=== PATIENT | female | born 1980 | race Caucasian/White ===

== ENCOUNTER 2018-12-01 19:35 | Emergency (ER) | payer OTHER ==
[~2018-12-01] VITALS: Ht 167.6 cm; Wt 102.0 kg
[2018-12-01 19:39] VITALS: BP 127/68; PULSE 105; RESP 20; Ht 167.6 cm; Wt 102.0 kg
[2018-12-01] MEDS ORDERED: KETOROLAC 30 MG INJ IM STA (22:11)
--- NOTE | 2018-12-01 22:11 | ERD ---
ER Documentation Chief Complaint Chief Complaint missed a step x 1 1/2 hour ago, c/o left foot pain HPI 37-year-old female presents here in the emergency department with complaints of left foot pain, right foot pain. Stated that he started after tripping on a 2 [address] stairs. Stated that she tripped, fell, landed on her left foot. [place]. LMP: 11/16/2018. G4, . Denies headache, head injury, loss of consciousness, dizziness, neck pain, neck stiffness, throat pain, difficulty swallowing, difficulty breathing lying flat, shoulder pain, chest pain, back pain, abdominal pain, nausea, vomiting, constipation, diarrhea, urinary symptoms, or possibility being , loss of bowel and bladder control, trauma, injury, falls, difficulty walking due to pain, numbness or tingling sensation, calf pain, recent travel, recent major surgery in the last 3 weeks, calf pain, recent long travel, recent exposure to any illness, recent antibiotic use in the last 3 months, fever, chills, seizures. Past medical history: Denies. Surgical history: Cholecystectomy. Social: Denies smoking, use of alcoholic beverages, use of illegal drugs. ROS All systems reviewed and are negative except as per history of present illness. Medications Home Meds Active Scripts Hydrocodone/Acetaminophen ([place] 10-325 Tablet) 1 Each Tablet, 1 TAB PO Q6H PRN for PAIN, #20 TAB Prov:PASILABAN,CANDYAR F 12/01/18 Ibuprofen* (Motrin*) 800 Mg Tab, 800 MG PO Q8 PRN for PAIN AND OR ELEVATED TEMP, #30 TAB Prov:PASILABAN,CANDYAR F 12/01/18 Allergies Allergies: Coded Allergies: No Known Drug Allergies (Verified Allergy, Unknown, 12/01/18) PMhx/Soc History of Surgery: Yes (jericho) Hx Alcohol Use: No Hx Substance Use: No Hx Tobacco Use: No Smoking Status: Never smoker Physical Exam Vitals Vital Signs Date Temp Pulse Resp B/P (MAP) Pulse Ox O2 O2 Flow FiO2 Time Delivery Rate 12/01/18 99.5 105 20 127/68 98 19:39 (87) Physical Exam Const: No acute distress Head: Atraumatic. No signs of direct injury to the head. Scalp is intact. Eyes: Normal Conjunctiva ENT: Normal External Ears, Nose and Mouth. Neck: Full range of motion. No meningismus. Resp: Clear to auscultation bilaterally Cardio: Regular rate and rhythm, no murmurs Abd: Soft, non tender, non distended. Normal bowel sounds Skin: No petechiae or rashes Back: No midline or flank tenderness. C-spine/T-spine/L-spine are midline wi th good and full range of motion and is no swelling/deformity/bulging/point of tenderness. No saddle anesthesia. Ext: No cyanosis, or edema. Left ankle: Mild tenderness to palpation. Mild swelling. No obvious deformity. Has good and full range of motion. No discoloration. Skin is not warm to touch. Left foot: Has tenderness to palpation to the dorsal area. No obvious deformity. Mild swelling. No discoloration. Skin is not warm to touch. Left toes has good and full range of motion. Left pedal pulse is within normal limits. Capillary refills to left lower extremity is less than 2 seconds. Left tibia and fibula: No swe lling/deformity/tenderness to its proximal/medial/distal area. No calf tenderness. Left knee is unremarkable. Bilateral hips are stable and unremarkable. Right knee is unremarkable. Right tibia and fibula: No tenderness/swelling/deformity to its proximal/medial/distal area. Right ankle: Good and full range of motion. No deformities. No swelling. Skin is not warm to touch. No discoloration. Right foot: No obvious deformity. No swelling. No discoloration. Right pedal pulses within normal limits. Skin is not warm to touch. Right toes has good and full range of motion but tenderness to palpation. Right toes has no obvious deformity/swelling. Capillary refills to right lower extremity is less than 2 seconds. No neurovascular deficits. Neur: Awake and alert. No neurological deficits. Psych: Normal Mood and Affect Results 24 hrs Laboratory Tests Test 12/01/18 22:19 POC Beta HCG, Qualitative NEGATIVE Current Medications Medications Dose Sig/Hammad Start Time Status Last (Trade) Ordered Route PRN Stop Time Admin Dose Reason Admin Ketorolac 30 mg ONCE STAT 12/01/18 DC 12/01/18 Tromethamine IM 22:11 22:45 (Toradol) 12/01/18 22:13 1 tab ONCE ONCE 12/01/18 DC 12/01/18 Acetaminophen PO 22:30 22:45 / 12/01/18 22:31 Hydrocodone Bitart ([place] (5/325)) 1 tab ONCE ONCE 12/02/18 DC 12/02/18 Acetaminophen PO 00:30 00:34 / 12/02/18 00:31 Hydrocodone Bitart ([place] (10/325)) Procedures/MDM Diagnostic tests: POC urine : Negative. X-ray of the left ankle: Unremarkable left ankle. X-ray of the left foot: Nondisplaced fracture of the base of the styloid process of the left fifth metatarsal. Otherwise unremarkable left foot. The ankle is described elsewhere. X-ray of the right foot: Unremarkable right foot radiographs. Treatment: Toradol IM. [place] p.o. Posterior short leg splint. Crutches with crutch training was also provided. Re-evaluation: No neurovascular deficit prior to and after the application of Elias wrap. Patient stated that she feels much better at this time and that she is ready to go home. Patient and family member stated that they are comfortable going home. Differential diagnosis I have low suspicion for displaced fracture, open fracture, compartment syndrome, Lisfranc fracture, subungual hematoma. Final diagnosis: Nondisplaced fracture of the base of the styloid process of the left fifth metatarsal. I checked [employer] [facility] Database Assessment: As the date of this encounter the [employer] database shows no history. In conjunction with this information I have decided to give [place] for her pain due to fracture. Prescription: Motrin. [place]. Follow-up with PCP in the next 24-48 hours. PCP to refer patient to glaucoma specialist in the next 3 to 5 days if symptoms persist. Come back here in the emergency department for any new symptoms or any worsening symptoms. All questions and concerns were answered. Patient and family members verbalized understanding and agreed with plan of care. Hemodynamically stable on discharge. Departure Diagnosis: Primary Impression: Metatarsal fracture Additional Impression: Injury of foot Condition: Stable Additional Instructions: Follow-up with PCP in the next 24-48 hours. PCP to refer patient to glaucoma specialist in the next 3 to 5 days if symptoms persist. None weightbearing to left lower extremity. Come back here in the emergency department for any new symptoms or any worsening symptoms. LORE MARION Dec 01, 2018 22:11
[2018-12-01] MEDS ORDERED: HYDROCODONE/APAP (5/325) TAB PO ONE (22:30)
[2018-12-01] MEDS ORDERED: IBUP800T48 PO (23:40)
[2018-12-01] MEDS ORDERED: HYDR-3980 PO (23:40)
[2018-12-02] MEDS ORDERED: HYDROCODONE/APAP (10/325) TAB PO ONE (00:30)
== END 2018-12-02 00:53 | disposition home or self-care (01) ==
LOC: FTE 19:35
DX: S92.355A Nondisplaced fracture of fifth metatarsal bone, left foot, initial encounter for closed fracture (principal); W01.0XXA Fall on same level from slipping, tripping and stumbling without subsequent striking against object, initial encounter; Y92.9 Unspecified place or not applicable
CPT/HCPCS: 29515; 73610; 73630; 81025; 96372; J1885; Z7502; Z7610